=== PATIENT | female | born 1965 | race Caucasian/White ===

== ENCOUNTER → 2019-06-19 10:00 | Outpatient (BNVA) | payer BC, SELFPAY | PROVIDERS: Family Provider Family Medicine; PCP Family Medicine; Visit Provider Nurse Practitioner Family | DX: R53.83 Other fatigue (principal); R42 Dizziness and giddiness; R23.1 Pallor; Z68.31 Body mass index [BMI] 31.0-31.9, adult | CPT/HCPCS: 80053; 82728; 83540; 83550; 84439; 84443; 85025 ==

== ENCOUNTER 2023-12-19 12:48 | Outpatient (CLI) | payer MEDICAID, SELFPAY ==
--- NOTE | 2023-12-19 12:52 | XR_ITS ---
WS: [id number] XR knee LT 3V* [id number] REASON FOR EXAM: KNEE PAIN FINDINGS: No fracture or focal bone lesion. The joint spaces of the left knee are intact and well preserved. No soft tissue abnormality. XR/XR knee LT 3V* [id number] IMPRESSION: No significant abnormality.
--- NOTE | 2023-12-19 12:52 | USCV_ITS ---
Peewee Mae Age: 57 Gender: F : 1965 Exam Date: 12/19/2023 13:18 Ordering Phys: Marilynn Telles Technologist: BAN [place] [facility] [place]: Sudden onset pain lt pop fossa HISTORY: Painful Lt leg at pop fossa. No trauma PROCEDURES: Venous duplex imaging was performed in only the left lower extremity. The following venous structures were evaluated: common femoral vein, profunda vein, proximal portion of the greater saphenous vein, superficial femoral vein, and the popliteal vein. In addition, the posterior tibial and peroneal trunk were evaluated. Serial compression, augmentation maneuvers, and spectral Doppler flow evaluation were performed. The Lt Pop fossa was examined as well. FINDINGS: Normal 2-D Doppler and augmentation and compressibility throughout the lower extremity venous structures. Additional imaging through the proximal calf veins also reveals no thrombus. Limited evaluation of the greater saphenous vein is patent with no thrombus. There appears to be a bakers cyst medial lt pop fossa. CONCLUSIONS No evidence of left lower extremity DVT. Popliteal cyst in popliteal fossa measures 1.5 x 1.7cm Kali Kyle MD (Electronically Signed) Final Date: 19 December 2023 14:28 S
== END 2023-12-19 12:49 | disposition home or self-care (01) ==
LOC: RAD 12:49
PROVIDERS: Family Provider Family Medicine; PCP Nurse Practitioner; Visit Provider Nurse Practitioner
DX: M71.22 Synovial cyst of popliteal space [Baker], left knee (principal); M79.605 Pain in left leg
CPT/HCPCS: 73562; 93971